=== PATIENT | female | born 1985 | race Caucasian/White ===

== ENCOUNTER → 2018-03-16 | Outpatient (CLI) | payer OTHER ==
--- NOTE | 2018-03-16 17:39 | XR ---
EXAMINATION TYPE: XR facial bones complete DATE OF EXAM: 03/16/2018 COMPARISON: NONE HISTORY: Left-sided numbness TECHNIQUE: 3 views FINDINGS: There is nondisplaced chip fracture of the tip of the nasal bone on the lateral view. Maxil sultana spine is intact. Orbital margins are intact. IMPRESSION: Fracture of the tip of the nasal bone.
== END ==
LOC: RADXRMAIN 17:11
PROVIDERS: ATTEND Internal Medicine
DX: S02.2XXA Fracture of nasal bones, initial encounter for closed fracture (principal); X58.XXXA Exposure to other specified factors, initial encounter
CPT/HCPCS: 70150

== ENCOUNTER → 2018-05-08 | Outpatient (CLI) | payer OTHER ==
--- NOTE | 2018-05-08 13:40 | CT ---
EXAMINATION TYPE: CT sinus wo con DATE OF EXAM: 05/08/2018 COMPARISON: MRI brain February 04, 2011 HISTORY: Sinusitis per order.. History of broken nose 10 years ago with headaches dizziness and facia l numbness or sinus infections per patient. CT DLP: 596.5 mGycm. Automated Exposure Control for Dose Reduction was Utilized. TECHNIQUE: CT scan of the sinuses is performed without contrast, axial images are obtained, coronal r eformatted images are also reviewed. FINDINGS: The paranasal sinuses including the frontal, ethmoid, sphenoid, and maxillary sinuses bila terally are well-aerated without abnormal opacification. The ostiomeatal complex is patent bilateral ly on the coronal images. Visualized portion of mastoid air cells show no abnormal opacification. The globes are intact bilate rally. Incidental septum pellucidum vergae redemonstrated. IMPRESSION: The sinuses are clear and the ostiomeatal complex is patent bilaterally.
== END | disposition home or self-care (01) ==
LOC: RADCTMAIN 13:06
PROVIDERS: ATTEND Otolaryngology Otolaryngology/Facial Plastic Surgery
DX: J32.9 Chronic sinusitis, unspecified (principal)
CPT/HCPCS: 70486

== ENCOUNTER → 2019-05-21 | Outpatient (CLI) | payer OTHER ==
--- NOTE | 2019-05-22 14:11 | XR ---
EXAMINATION TYPE: XR chest 2V DATE OF EXAM: 05/21/2019 COMPARISON: 09/01/2010 INDICATION: Coughing TECHNIQUE: Frontal and lateral views of the chest are obtained. FINDINGS: The heart size is normal. The pulmonary vasculature is normal. Tiny nodularities in the periphery of the right lower lung field follow-up is recommended. This may h ave been present previously. IMPRESSION: 1. No suspicious consolidation is evident. Tiny density may be in the periphery of the right lower ramírez ng field. Follow-up exam in 6 months to confirm stability is recommended.
== END | disposition home or self-care (01) ==
LOC: RADXRMAIN 16:41
PROVIDERS: ATTEND Allergy & Immunology
DX: R05 Cough (principal)
CPT/HCPCS: 71046

== ENCOUNTER → 2021-05-21 | Outpatient (CLI) | payer OTHER | END | disposition home or self-care (01) | LOC: LABWHC1 14:20 | PROVIDERS: ATTEND Obstetrics & Gynecology | DX: R89.9 Unspecified abnormal finding in specimens from other organs, systems and tissues (principal) | CPT/HCPCS: 36415; 84702 ==

== ENCOUNTER 2023-12-24 18:47 | Emergency (ER) | payer OTHER ==
[2023-12-24 19:23] VITALS: TEMP 98.4
--- NOTE | 2023-12-24 19:45 | ED ---
Abdominal Pain HPI - General Source: patient, RN notes reviewed Mode of arrival: ambulatory Limitations: no limitations <Lorraine Vargas - Last Filed: 12/24/23 19:43> <Ivania Sterling - Last Filed: 12/26/23 03:45> - General Chief Complaint: Abdominal Pain Stated Complaint: abd pain,chest pain Time Seen by Provider: 12/24/23 18:59 - History of Present Illness Initial Comments: Quick Note-this is a 38-year-old female presents emergency department chief complaint of gastric abdominal pain, chest pain and vomiting over the past 3 days. She states that the abdominal pain radiates into her back. She denies hematemesis, states that her emesis has been brown in color. She denies fevers, dizziness, lightheadedness. (Lorraine Vargas) 38-year-old female presenting with chief complaint of abdominal pain. Patient admits to a burning epigastric pain with radiation up into the chest. She also admits to nausea and vomiting. Symptoms have been ongoing for the last 3 days. She does have some radiation of the pain to her back as well. She denies any hematic emesis, hematochezia, melena. Admits to diarrhea. No fever, chills, dizziness. (Ivania Sterling) - Related Data Previous Rx's Medication Instructions Recorded Famotidine [Pepcid] 20 mg PO DAILY #20 tablet 12/24/23 Ondansetron Odt [Zofran Odt] 4 mg PO Q8HR PRN #20 tab 12/24/23 Potassium Chloride ER [K-Dur 20] 20 meq PO DAILY #4 tab 12/24/23 Allergies Allergy/AdvReac Type Severity Reaction Status Date / Time cefaclor [From Ceclor] Allergy Unknown Verified 09/22/14 20:41 doxycycline AdvReac Vomiting Verified 12/24/23 18:53 Review of Systems ROS Other: All systems not noted in ROS Statement are negative. <Lorraine Vargas - Last Filed: 12/24/23 19:43> ROS Other: All systems not noted in ROS Statement are negative. <Ivania Sterling - Last Filed: 12/26/23 03:45> ROS Statement: Those systems with pertinent positive or pertinent negative responses have been documented in the HPI. Past Medical History Additional Past Medical History / Comment(s): kidney stones, miscarriage x9 History of Any Multi-Drug Resistant Organisms: None Reported Past Psychological History: No Psychological Hx Reported Smoking Status: Current every day smoker Past Alcohol Use History: None Reported Past Drug Use History: None Reported <Lorraine Vargas - Last Filed: 12/24/23 19:43> General Exam Limitations: no limitations <Lorraine Vargas - Last Filed: 12/24/23 19:43> Limitations: no limitations General appearance: alert, in no apparent distress Head exam: Present: atraumatic, normocephalic Eye exam: Present: normal appearance, EOMI Neck exam: Present: normal inspection. Absent: meningismus Respiratory exam: Present: normal lung sounds bilaterally. Absent: respiratory distress, wheezes, rales, rhonchi, stridor Cardiovascular Exam: Present: regular rate, normal rhythm, normal heart sounds. Absent: systolic murmur, diastolic murmur, rubs, gallop, clicks GI/Abdominal exam: Present: soft, tenderness (Nonspecific). Absent: distended, guarding, rebound, rigid Neurological exam: Present: alert, oriented X3 Psychiatric exam: Present: normal affect, normal mood Skin exam: Present: normal color <Ivania Sterling - Last Filed: 12/26/23 03:45> - General Exam Comments Initial Comments: Visual Physical Exam Vital signs reviewed General: Well-appearing, nontoxic, no acute distress. Head: Normocephalic, atraumatic Eyes: PERRLA, EOMI ENT: Airway patent Chest: Nonlabored breathing Skin: No visual rash, normal skin tone Neuro: Alert and oriented 3 Musculoskeletal: No gross abnormalities (Lorraine Vargas) Course Vital Signs 12/24/23 12/24/23 18:54 21:40 Temperature 98.4 F Pulse Rate 55 L 72 Respiratory 18 16 Rate Blood Pressure 115/73 110/72 O2 Sat by Pulse 100 96 Oximetry Medical Decision Making <Lorraine Vargas - Last Filed: 12/24/23 19:43> - Lab Data Result diagrams: 12/24/23 19:55 12/24/23 19:55 <Ivania Sterling - Last Filed: 12/26/23 03:45> - Medical Decision Making I completed the quick note portion of this chart signed Lorraine Vargas PA-C (Lorraine Vargas) Was pt. sent in by a medical professional or institution ([facility], [facility], urgent care, hospital, or long-term...) When possible be specific @ -No Did you speak to anyone other than the patient for history (EMS, parent, family, police, friend...)? What history was obtained from this source @ -No Did you review nursing and triage notes (agree or disagree)? Why? @ -I reviewed and agree with nursing and triage notes Were old charts reviewed (outside hosp., previous admission, EMS record, old EKG, old radiological studies, urgent care reports/EKG's, long-term records)? Report findings @ -No old charts were reviewed Differential Diagnosis (chest pain, altered mental status, abdominal pain women, abdominal pain men, vaginal bleeding, weakness, fever, dyspnea, syncope, headache, dizziness, GI bleed, back pain, seizure, CVA, palpatations, mental health, musculoskeletal)? @ -MDM Differential Abdominal Pain Women: Appendicitis, Cholecystitis, diverticulosis, ischemic bowel, pancreatitis, hepatitis, UTI, gastroenteritis, AAA, incarcerated hernia, bowel obstruction, constipation, inflammatory bowel, hepatitis, peptic ulcer disease, splenic infarction, perforated viscus, vulvitis, ovarian torsion, PID, kidney stone, placenta abruption... This is not meant to be an all-inclusive list EKG interpreted by me (3pts min.). @ -EKG shows sinus bradycardia with sinus arrhythmia with short WV interval. Ventricular rate 59. WV interval 115. QRS 94. QT 408. QTc 403. No ST devia tion. X-rays interpreted by me (1pt min.). @ -Chest x-ray shows no acute cardiopulmonary abnormality CT interpreted by me (1pt min.). @ -None done U/S interpreted by me (1pt. min.). @ -None done What testing was considered but not performed or refused? (CT, X-rays, U/S, labs)? Why? @ -None What meds were considered but not given or refused? Why? @ -None Did you discuss the management of the patient with other professionals (professionals i.e. [facility], [facility], lab, RT, psych nurse, clinical social work therapist, web site administrator, teacher, founder and chief executive officer, case management coordinator)? Give summary @ -No Was smoking cessation discussed for >3mins.? @ -No Was critical care preformed (if so, how long)? @ -No Were there social determinants of health that impacted care today? How? (Homelessness, low income, unemployed, alcoholism, drug addiction, transportation, low edu. Level, literacy, decrease access to med. care, shelter, rehab)? @ -No Was there de-escalation of care discussed even if they declined (Discuss DNR or withdrawal of care, Hospice)? DNR status @ -No What co-morbidities impacted this encounter? (DM, HTN, Smoking, COPD, CAD, Cancer, CVA, ARF, Chemo, Hep., AIDS, mental health diagnosis, sleep apnea, morbid obesity)? @ -None Was patient admitted / discharged? Hospital course, mention meds given and route, prescriptions, significant lab abnormalities, going to OR and other pertinent info. @ -38-year-old female presenting with chief complaint of nausea vomiting and burning epigastric pain. Workup is initiated by triage. Patient is later placed in a hallway bed and examined by myself. WBC 11.5, likely reactive. Potassium 3.2, likely due to vomiting and decreased oral intake. Negative troponin EKG shows no ischemic changes. Negative hCG. Chest x-ray shows no acute process. Patient reports improvement after Toradol, Pepcid, GI cocktail, Zofran, IV fluids. She is given 40 mEq K-Dur. Educated on today's findings. Provided with medication for home and discharged home. Follow-up with PCP. Report back to ER with any new or worsening symptoms. Discussed return parameters and answered all questions. Patient conveyed verbal understanding and agreed to the plan. I discussed this case in detail with my attending Dr. Ta Undiagnosed new problem with uncertain prognosis? @ -No Drug Therapy requiring intensive monitoring for toxicity (Heparin, Nitro, Insulin, Cardizem)? @ -No Were any procedures done? @ -No Diagnosis/symptom? @ -Gastritis, nausea and vomiting Acute, or Chronic, or Acute on Chronic? @ -Acute Uncomplicated (without systemic symptoms) or Complicated (systemic symptoms)? @ -Uncomplicated Side effects of treatment? @ -No Exacerbation, Progression, or Severe Exacerbation? @ -No Poses a threat to life or bodily function? How? (Chest pain, USA, DC, pneumonia, PE, COPD, DKA, ARF, appy, cholecystitis, CVA, Diverticulitis, Homicidal, Suicidal, threat to staff... and all critical care pts) @ -Unlikely (Ivania Sterling) - Lab Data Lab Results 12/24/23 12/24/23 12/24/23 Range/Units 19:55 19:55 20:10 WBC 11.5 H (3.8-10.6) k/uL RBC 3.82 (3.80-5.40) m/uL Hgb 13.0 (11.4-16.0) gm/dL Hct 38.0 (34.0-46.0) % MCV 99.3 (80.0-100.0) fL MCH 34.0 (25.0-35.0) pg MCHC 34.3 (31.0-37.0) g/dL RDW 13.5 (11.5-15.5) % Plt Count 260 (150-450) k/uL MPV 7.2 Neutrophils % 74 % Lymphocytes % 20 % Monocytes % 5 % Eosinophils % 0 % Basophils % 0 % Neutrophils # 8.5 H (1.3-7.7) k/uL Lymphocytes # 2.3 (1.0-4.8) k/uL Monocytes # 0.5 (0-1.0) k/uL Eosinophils # 0.0 (0-0.7) k/uL Basophils # 0.0 (0-0.2) k/uL Sodium 139 (137-145) mmol/L Potassium 3.2 L (3.5-5.1) mmol/L Chloride 106 (98-107) mmol/L Carbon Dioxide 28 (22-30) mmol/L Anion Gap 5 mmol/L BUN 13 (7-17) mg/dL Creatinine 0.73 (0.52-1.04) mg/dL Est GFR (CKD-EPI)AfAm >90 (>60 ml/min/1.73 sqM) Est GFR (CKD-EPI)NonAf >90 (>60 ml/min/1.73 sqM) Glucose 96 (74-99) mg/dL Calcium 9.2 (8.4-10.2) mg/dL Total Bilirubin 0.4 (0.2-1.3) mg/dL AST 15 (14-36) U/L ALT 10 (4-34) U/L Alkaline Phosphatase 53 (38-126) U/L Troponin I (0.000-0.034) ng/mL Total Protein 6.1 L (6.3-8.2) g/dL Albumin 4.0 (3.5-5.0) g/dL Amylase 47 (30-110) U/L Lipase 59 (23-300) U/L Urine Color Yellow Urine Appearance Clear (Clear) Urine pH 6.0 (5.0-8.0) Ur Specific [place] 1.030 (1.001-1.035) Urine Protein 1+ H (Negative) Urine Glucose (UA) Negative (Negative) Urine Ketones Negative (Negative) Urine Blood Negative (Negative) Urine Nitrite Negative (Negative) Urine Bilirubin Negative (Negative) Urine Urobilinogen 3.0 (<2.0) mg/dL Ur Leukocyte Esterase Negative (Negative) Urine RBC 6 H (0-5) /hpf Urine WBC 4 (0-5) /hpf Ur Squamous Epith Cells 1 (0-4) /hpf Urine Mucus Few H (None) /hpf Urine HCG, Qual (Not Detectd) 12/24/23 12/24/23 Range/Units 21:02 21:04 WBC (3.8-10.6) k/uL RBC (3.80-5.40) m/uL Hgb (11.4-16.0) gm/dL Hct (34.0-46.0) % MCV (80.0-100.0) fL MCH (25.0-35.0) pg MCHC (31.0-37.0) g/dL RDW (11.5-15.5) % Plt Count (150-450) k/uL MPV Neutrophils % % Lymphocytes % % Monocytes % % Eosinophils % % Basophils % % Neutrophils # (1.3-7.7) k/uL Lymphocytes # (1.0-4.8) k/uL Monocytes # (0-1.0) k/uL Eosinophils # (0-0.7) k/uL Basophils # (0-0.2) k/uL Sodium (137-145) mmol/L Potassium (3.5-5.1) mmol/L Chloride (98-107) mmol/L Carbon Dioxide (22-30) mmol/L Anion Gap mmol/L BUN (7-17) mg/dL Creatinine (0.52-1.04) mg/dL Est GFR (CKD-EPI)AfAm (>60 ml/min/1.73 sqM) Est GFR (CKD-EPI)NonAf (>60 ml/min/1.73 sqM) Glucose (74-99) mg/dL Calcium (8.4-10.2) mg/dL Total Bilirubin (0.2-1.3) mg/dL AST (14-36) U/L ALT (4-34) U/L Alkaline Phosphatase (38-126) U/L Troponin I <0.012 (0.000-0.034) ng/mL Total Protein (6.3-8.2) g/dL Albumin (3.5-5.0) g/dL Amylase (30-110) U/L Lipase (23-300) U/L Urine Color Urine Appearance (Clear) Urine pH (5.0-8.0) Ur Specific [place] (1.001-1.035) Urine Protein (Negative) Urine Glucose (UA) (Negative) Urine Ketones (Negative) Urine Blood (Negative) Urine Nitrite (Negative) Urine Bilirubin (Negative) Urine Urobilinogen (<2.0) mg/dL Ur Leukocyte Esterase (Negative) Urine RBC (0-5) /hpf Urine WBC (0-5) /hpf Ur Squamous Epith Cells (0-4) /hpf Urine Mucus (None) /hpf Urine HCG, Qual Not Detected (Not Detectd) Disposition <Lorraine Vargas - Last Filed: 12/24/23 19:43> Is patient prescribed a controlled substance at d/c from ED?: No Time of Disposition: 22:26 <Ivania Sterling - Last Filed: 12/26/23 03:45> Clinical Impression: Gastritis, Nausea & vomiting Disposition: HOME SELF-CARE Condition: Good Instructions (If sedation given, give patient instructions): Gastritis (ED), Acute Nausea and Vomiting (ED) Additional Instructions: Follow-up with your PCP. Report back to ER with any new or worsening symptoms. Prescriptions: Potassium Chloride ER [K-Dur 20] 20 meq PO DAILY #4 tab Famotidine [Pepcid] 20 mg PO DAILY #20 tablet Ondansetron Odt [Zofran Odt] 4 mg PO Q8HR PRN #20 tab PRN Reason: Nausea Referrals: Kizzy Schulz MD [REFERRING] - 1-2 days
[2023-12-24 20:04] LABS: Basophils % (A) 0 %; Eosinophils % (A) 0 %; Lymphocytes # (A) 2.3 k/uL (1.0-4.8); Lymphocytes % (A) 20 %; MCHC 34.3 g/dL (31.0-37.0); MCV 99.3 fL (80.0-100.0); Mean Platelet Volume 7.2; Monocytes # (A) 0.5 k/uL (0-1.0); Monocytes % (A) 5 %; Neutrophils # (A) 8.5 k/uL (1.3-7.7); Neutrophils % (A) 74 %; Platelet Count 260 k/uL (150-450); RBC 3.82 m/uL (3.80-5.40); RDW 13.5 % (11.5-15.5); WBC 11.5 k/uL (3.8-10.6)
[2023-12-24 20:18] LABS: ALT 10 U/L (4-34); AST 15 U/L (14-36); African American GFR (CKD) >90 (>60 ml/min/1.73 sqM); Alkaline Phosphatase 53 U/L (38-126); Amylase 47 U/L (30-110); Anion Gap 5 mmol/L; Blood Urea Nitrogen 13 mg/dL (7-17); Calcium 9.2 mg/dL (8.4-10.2); Carbon Dioxide 28 mmol/L (22-30); Chloride 106 mmol/L (98-107); Glucose 96 mg/dL (74-99); Lipase 59 U/L (23-300); Non-African American GFR(CKD) >90 (>60 ml/min/1.73 sqM); Potassium 3.2 mmol/L (3.5-5.1); Sodium 139 mmol/L (137-145); Total Bilirubin 0.4 mg/dL (0.2-1.3); Total Protein 6.1 g/dL (6.3-8.2)
[2023-12-24 20:27] LABS: Appearance,Urine Clear (Clear); Bilirubin,Urine Negative (Negative); Blood,Urine Negative (Negative); Color,Urine Yellow; Glucose,Urine (UA) Negative (Negative); Ketones,Urine Negative (Negative); Leukocyte Esterase,Urine Negative (Negative); Mucus,Urine Few /hpf; Nitrite,Urine Negative (Negative); Protein,Urine 1+ (Negative); RBC,Urine 6 /hpf (0-5); Squamous Epithelial Cell,Urine 1 /hpf (0-4); WBC,Urine 4 /hpf (0-5)
[2023-12-24] MEDS: MAG HYDROX/AL HYDROX/SIMETH 30 ML, HYOSCYAMINE ELIXIR 10 ML, LIDOCAINE VISCOUS 2% 10 ML PO STA (21:19)
[2023-12-24] MEDS: SODIUM CHLORIDE 0.9% 1,000 ML IV STA (21:19)
[2023-12-24] MEDS: KETOROLAC 15 MG/ML 1 ML VIAL IVP STA (21:24)
[2023-12-24] MEDS: ONDANSETRON 4 MG/2 ML VIAL IVP STA (21:28)
[2023-12-24] MEDS: FAMOTIDINE 20 MG/2 ML VIAL IV STA (21:28)
[2023-12-24] MEDS: POTASSIUM CHLORIDE ER 20 MEQ TAB.ER PO STA (22:10)
[2023-12-24 22:33] VITALS: BP 110/72; PULSE 72; RESP 16
--- NOTE | 2023-12-25 00:08 | XR ---
EXAMINATION TYPE: XR chest 2V DATE OF EXAM: 12/24/2023 9:09 PM CLINICAL INDICATION:Female, 38 years old with history of epigastric/chest pain; [facility] COMPARISON: 05/21/2019 TECHNIQUE: XR chest 2V. Frontal and lateral views of the chest.. FINDINGS: Lines/Tubes/Devices: No indwelling lines are seen. Heart/mediastinum: Heart size is normal. Mediastinum appears normal. Pulmonary vascularity: Not increased, Lungs/Pleura: There is no evidence of pleural effusion, focal consolidation, or pneumothorax. Relati vely stable tiny density over the right lower lung field, may be granuloma. Musculoskeletal: No acute osseous abnormality demonstrated in the limits of the exam. Other findings: None. IMPRESSION: No acute cardiopulmonary abnormality.
== END 2023-12-24 23:11 | disposition home or self-care (01) ==
LOC: EC 18:47
DX: K29.70 Gastritis, unspecified, without bleeding (principal); F17.200 Nicotine dependence, unspecified, uncomplicated; Z88.1 Allergy status to other antibiotic agents; Z88.8 Allergy status to other drugs, medicaments and biological substances
CPT/HCPCS: 36415; 93005; 80053; 82150; 83690; 84484; 85025; 81001; 81025; 71046; 99284; 96374; 96375 ×2; 96361; J2405; J3490; J1885